=== PATIENT | female | born 1990 | race Caucasian/White ===

== ENCOUNTER 2019-09-08 14:11 | Outpatient (RCR) | payer OTHER, SELFPAY ==
[2019-09-08 14:58] VITALS: BP 112/72; PULSE 91
== END 2019-09-21 07:47 | disposition home or self-care (01) ==
LOC: ANHOBOP 14:11
PROVIDERS: PCP Obstetrics & Gynecology; Visit Provider Obstetrics & Gynecology
DX: O36.8130 Decreased fetal movements, third trimester, not applicable or unspecified (principal); Z3A.37 37 weeks gestation of pregnancy
CPT/HCPCS: 59025

== ENCOUNTER 2019-09-17 08:53 | Inpatient (IN) | payer OTHER, SELFPAY ==
[2019-09-17] VITALS (70 sets, daily range): BP systolic 88–143; BP diastolic 41–84; PULSE 68–133; RESP 16–18; TEMP 36.7–37.2; O2SAT 98–100; BMI 31.4
--- NOTE | 2019-09-17 10:01 | PM.IMHP ---
H&P: HPI History of Present Illness Chief complaint: labor Narrative: FLEX BLEVINS is a 29 year old female who presents at 30 a 8 half weeks gestation in active labor. has been uncomplicated she is a l Review of Systems Review of Systems: All systems reviewed & are unremarkable except as noted in HPI and below PMFSH Family History Family History Other No pertinent family history Social History Social History Gender identity (if verbalized by the patient): Female Spiritual care concerns: No Meds Home Medications and Allergies Home Medications Medication Instructions Recorded Confirmed Type PNV cmb#95-ferrous fumarate-FA 1 tablet PO DAILY 09/05/19 09/05/19 History [] Allergies Allergy/AdvReac Type Severity Reaction Status Date / Time No Known Allergies Allergy Verified 09/05/19 13:05 Exam Const: General: no acute distress Eyes: General: appearance normal, both eyes and all related structures Neck: Neck: supple and no JVD Thyroid: thyroid normal Resp: Effort & Inspection: normal respiratory effort Auscultation: clear to auscultation bilaterally Cardio: Rate: regular rate Rhythm: regular rhythm GI: Inspection: normal to inspection Percussion: Yes normal to percussion ( gravid uterus with regular contractions) Skin: General skin exam: no rashes or lesions noted Extrem: General: normal to inspection and no edema Psych: Mental Status: mental status grossly normal Affect: normal affect Assessment and Plan Additional Plan impression: Term in active labor Plan: Spontaneous vaginal delivery is expected. She has an epidural candidate
[2019-09-17 10:35] LABS: Basophils Percent Auto 0.3 % (0.2-1.2); Eosinophils Absolute Auto 0.2 K/mm3 (0-0.3); Eosinophils Percent Auto 1.8 % (0-4.4); Hemoglobin 12.9 g/dL (12.0-15.0); Immature Granulocyte Absolute 0.04 K/mm3 (0.00-0.031); Immature Granulocyte Percent A 0.4 % (0-0.5); Lymphocytes Absolute Auto 2.38 K/mm3 (0.9-3.2); Lymphocytes Percent Auto 25.8 % (18.3-44.2); Mean Corpuscular HGB Conc 34.9 g/dl (32-36); Mean Corpuscular Hemoglobin 31.5 pg (26-34); Mean Corpuscular Volume 90.5 fl (80-100); Mean Platelet Volume 9.2 fl (7.4-10.4); Monocytes Absolute Auto 0.8 K/mm3 (0.1-0.6); Monocytes Percent Auto 9.1 % (2.6-8.5); Neutrophils Absolute Auto 5.8 K/mm3 (1.3-6.7); Neutrophils Percent Auto 62.6 % (45.5-73.1); Platelet Count Result 336 k/mm3 (150-375); Red Blood Count 4.09 M/mm3 (4.2-5.4); White Blood Count 9.2 K/mm3 (4.5-10.0)
[2019-09-17] MEDS: LACTATED RINGERS 1,000 ML 125 ML IV CONT ×2 (10:54→11:57)
--- NOTE | 2019-09-17 10:54 | WPDOBADMIT ---
Obstetrics - Admit Note Admission Note: record reviewed. No pertinent additions to the history and/or any subsequent changes in the physical findings that are not consistent with the expected course of the were found. Additions to the history and/or subsequent changes in the physical findings follow. None. cx /-2 arom clear fhts reassuring epidural ordered
[2019-09-17] MEDS: LACTATED RINGERS 1,000 ML 999 ML (11:14)
--- NOTE | 2019-09-17 14:19 | PM.OBPRVD ---
OB - Delivery Note Procedure Delivery date: 09/17/19 Procedure: Intrapartal events: None Induction method: none Delivery monitor: external FHT Route of delivery: Episiotomy description: None Laceration description: None Specimen: No Estimated blood loss (mL): 57 Anesthesia type: Epidural Disposition: floor Baby Date of : 09/17/19 Time of : 14:10 Weeks of gestation at delivery: 38 gender: Female Weight (pounds): 8 Weight (ounces): 1 presentation: vertex position: Right Occiput Anterior Placenta delivery description: Spontaneous cord vessel description: 3 Vessels score one minute: 9 score five minutes: 9
--- NOTE | 2019-09-17 14:29 | WPDANESEPP ---
Anes - Eval Pre Procedure Date/Time: 09/17/19 11:07 Pre Op Diagnosis: labor Patient Data Age: 29 Gender: F Height: 1.57 m Weight: 78 kg Last Vital Signs Temp 36.7 C 09/17/19 12:30 Pulse 97 09/17/19 14:16 BP 97/41 L 09/17/19 14:16 Pulse Ox 100 09/17/19 13:48 Allergies Allergy/AdvReac Type Severity Reaction Status Date / Time No Known Allergies Allergy Verified 09/05/19 13:05 Home Medications Medication Instructions Recorded Confirmed Type PNV cmb#95-ferrous fumarate-FA 1 tablet PO DAILY 09/05/19 09/05/19 History [] Laboratory Tests 09/17/19 09/17/19 09/17/19 10:26 10:26 10:26 WBC 9.2 K/mm3 K/mm3 (4.5-10.0) RBC 4.09 M/mm3 L M/mm3 (4.2-5.4) Hgb 12.9 g/dL g/dL (12.0-15.0) Hct 37.0 % % (37.0-47.0) MCV 90.5 fl fl (80-100) MCH 31.5 pg pg (26-34) MCHC 34.9 g/dl g/dl (32-36) RDW 13.0 % % (11.5-14.5) Plt Count 336 k/mm3 k/mm3 (150-375) MPV 9.2 fl fl (7.4-10.4) Immature Gran % (Auto) 0.4 % % (0-0.5) Neut % (Auto) 62.6 % % (45.5-73.1) Lymph % (Auto) 25.8 % % (18.3-44.2) [place] % (Auto) 9.1 % H % (2.6-8.5) Eos % (Auto) 1.8 % % (0-4.4) Baso % (Auto) 0.3 % % (0.2-1.2) Lymph # (Auto) 2.38 K/mm3 K/mm3 (0.9-3.2) [place] # (Auto) 0.8 K/mm3 H K/mm3 (0.1-0.6) Eos # (Auto) 0.2 K/mm3 K/mm3 (0-0.3) Baso # (Auto) 0.0 K/mm3 K/mm3 (0.0-0.1) Abs Immat Gran (auto) 0.04 K/mm3 H K/mm3 (0.00-0.031) Absolute Neuts (auto) 5.8 K/mm3 K/mm3 (1.3-6.7) Absolute Nucleated RBC 0.0 K/mm3 K/mm3 (0.0-0.012) Nucleated RBC % 0.0 % % (0.0-0.2) RPR Pending Blood Type O Positive Antibody Screen Negative Patient hx anesthesia problems: none Family hx anesthesia problems: none PMFSH Family History Family History Other No pertinent family history Social History Social History Smoking status: Never smoker Second hand tobacco smoke exposure: No Gender identity (if verbalized by the patient): Female Spiritual care concerns: No Exam Day of Procedure 09/17/19 14:29 Patient weight: normal Heart: regular rate and rhythm Lungs: clear to auscultation Airway: Mallampati scale class II Neurological: alert and oriented
[2019-09-17] MEDS: WITCH HAZEL 40 PADS 1 PAD TOPICAL (17:19)
[2019-09-17] MEDS: BENZOCAINE 20% AER SPR (*SP) 56 GM CAN 1 SPRAY TOPICAL (17:19)
--- NOTE | 2019-09-17 18:06 | PC.NURSE ---
1658-Patient transferred to post room #280 via wheelchair. Support person present. Oriented to unit, room, information board, rooming in, admission packet and security measures. Patient verbalizes understanding.
[2019-09-17] MEDS: IBUPROFEN 600 MG TABLET PO (19:08)
[2019-09-18] MEDS: ACETAMINOPHEN 325 MG TABLET 650 MG PO ×2 (01:33→11:28)
[2019-09-18] MEDS: IBUPROFEN 600 MG TABLET PO ×2 (01:33→07:16)
[2019-09-18 06:03] LABS: Hematocrit 29.5 % (37.0-47.0); Hemoglobin 10.4 g/dL (12.0-15.0)
--- NOTE | 2019-09-18 06:56 | PM.OBPNVD ---
OB - PN: Subj Subjective Date/time seen: 09/18/19 06:56 Patient comments: no complaints and pain well controlled baby status: doing well and nursing well OB - PN: Obj Data Labs CBC & Chem 7: 09/18/19 04:48 Labs: Laboratory Results - last 24 hr 09/17/19 09/17/19 09/18/19 10:26 10:26 04:48 WBC 9.2 RBC 4.09 L Hgb 12.9 10.4 L Hct 37.0 29.5 L MCV 90.5 MCH 31.5 MCHC 34.9 RDW 13.0 Plt Count 336 MPV 9.2 Immature Gran % (Auto) 0.4 Neut % (Auto) 62.6 Lymph % (Auto) 25.8 [place] % (Auto) 9.1 H Eos % (Auto) 1.8 Baso % (Auto) 0.3 Lymph # (Auto) 2.38 [place] # (Auto) 0.8 H Eos # (Auto) 0.2 Baso # (Auto) 0.0 Abs Immat Gran (auto) 0.04 H Absolute Neuts (auto) 5.8 Absolute Nucleated RBC 0.0 Nucleated RBC % 0.0 Blood Type O Positive Antibody Screen Negative OB - PN A/P Plan day: 1 Plan: routine care Time Spent With Patient Time: Total time spent is greater than 50% in coordination of care (as documented) at patient's floor/unit and/or counseling patient: Time with patient: less than 15 minutes Review of Systems Review of Systems: All systems reviewed & are unremarkable except as noted in HPI and below Exam GI: Inspection: normal to inspection Percussion: Yes normal to percussion Other: fundus firm : General: Yes other (flow light)
[2019-09-18] MEDS: DOCUSATE SODIUM 100 MG CAPSULE PO (07:06)
[2019-09-18] MEDS: MULTIVIT/MIN/PREN/FOL AC/IRON TABLET 1 TAB PO (07:06)
--- NOTE | 2019-09-18 07:08 | PM.DS ---
DS: Diagnosis Admitting Diagnosis Admitting Diagnosis: term DS: Summary Time Spent with Patient Time attestation: Total time spent providing and/or coordinating discharge services: Exam Const: General: no acute distress Eyes: General: appearance normal, both eyes and all related structures Neck: Neck: supple and no JVD Thyroid: thyroid normal Resp: Effort & Inspection: normal respiratory effort Auscultation: clear to auscultation bilaterally Cardio: Rate: regular rate Rhythm: regular rhythm GI: Inspection: non-distended GI Palp: Yes Soft to palpation, No Tenderness to palpation present (GI) and No Guarding due to palpation present (GI) Auscultation: normal bowel sounds : General: Yes bladder normal to palpation External Female Exam: normal external appearance Speculum Exam - Vagina: normal vaginal discharge and No vaginal bleeding Speculum Exam - Cervix: nontender Bimanual exam- vagina & uterus: bladder normal to palpation and No Cervical tenderness present OB/external & speculum: No vaginal bleeding Skin: General skin exam: no rashes or lesions noted Extrem: General: normal to inspection and no edema Psych: Mental Status: mental status grossly normal Affect: normal affect DS: Data Data Completed and Pending Labs on day of discharge: Labs from last 24 hours 09/18/19 09/17/19 09/17/19 04:48 10:26 10:26 WBC RBC Hgb 10.4 L Hct 29.5 L MCV MCH MCHC RDW Plt Count MPV Immature Gran % (Auto) Neut % (Auto) Lymph % (Auto) [place] % (Auto) Eos % (Auto) Baso % (Auto) Lymph # (Auto) [place] # (Auto) Eos # (Auto) Baso # (Auto) Abs Immat Gran (auto) Absolute Neuts (auto) Absolute Nucleated RBC Nucleated RBC % RPR Pending Blood Type O Positive Antibody Screen Negative 09/17/19 10:26 WBC 9.2 RBC 4.09 L Hgb 12.9 Hct 37.0 MCV 90.5 MCH 31.5 MCHC 34.9 RDW 13.0 Plt Count 336 MPV 9.2 Immature Gran % (Auto) 0.4 Neut % (Auto) 62.6 Lymph % (Auto) 25.8 [place] % (Auto) 9.1 H Eos % (Auto) 1.8 Baso % (Auto) 0.3 Lymph # (Auto) 2.38 [place] # (Auto) 0.8 H Eos # (Auto) 0.2 Baso # (Auto) 0.0 Abs Immat Gran (auto) 0.04 H Absolute Neuts (auto) 5.8 Absolute Nucleated RBC 0.0 Nucleated RBC % 0.0 RPR Blood Type Antibody Screen Discharge Plan Discharge Attending physician on discharge: Seymour Mejia Discharging Clinician: Seymour Mejia Patient Disposition: Home, Self-Care Activity: may shower, no straining, may drive after 2 weeks and pelvic rest Diet: heart healthy Wound Care Instructions: follow printed instructions Patient Instructions: Antibiotic Form Stand Alone Forms: General Discharge Information Follow-up/Referrals: Seymour Mejia MD [Primary Care Provider] - Discharge Medications: New hydrocodone-acetaminophen [[place]] 5-325 mg tablet 1 tablet PO Q4H PRN (Reason: pain) Qty: 10 RF: 0 Continued PNV cmb#95-ferrous fumarate-FA [] 28 mg iron- 800 mcg Tablet 1 tablet PO DAILY RF: 0 Date of admission: 09/17/19 08:53 Primary Care Provider: Seymour Mejia Admitting Provider: Seymour Mejia Attending physician on admission: Seymour Mejia
--- NOTE | 2019-09-18 07:15 | PC.NURSE ---
Patient viewed the discharge video Mother & Baby Care, The First Two Weeks . Patient was given the opportunity and encouraged to ask questions. Patient verbalized understanding of information shared and has been given the mother/baby guide for home reference.
[2019-09-18 07:45] VITALS: BP 100/69; PULSE 64; RESP 16; TEMP 36.9; O2SAT 98
[2019-09-18 07:56] LABS: Rapid Plasma Reagin Non-Reactive (NonReactive)
[2019-09-18] MEDS: MEASLES,MUMPS,RUBELLA VACCINE 0.5 ML VIAL SUB-Q (11:29)
--- NOTE | 2019-09-18 14:15 | PC.NURSE ---
Mother called out for assist with feeding. Upon entering mother has to breast in cross cradle with shallow latch. Reviewed feeding cues, frequencies, duration of feedings, feeding elimination flow sheet, and signs of adequate intake. Demonstrated stimulation techniques to wake for feeding. Assisted with to breast. Reviewed positioning/alignment in cross cradle, holding breast in U hold and guided asymmetrical latch on. was able to latch correctly. Infant nursed eagerly, with steady draws and frequent swallowing noted. Reviewed signs of a correct latch, effective nursing and suck swallow ratio. was able to maintain latch without discomfort to mother. Nipple care reviewed. Mother reports she feels is latched more deeply and reports less discomfort. Mother plans on 24 hour discharge. Mother is feeding as required and waking infant to feed if needed. Infant is currently meeting outcomes for weight, output, jaundice and feeding frequencies. Mother states she feels confident to continue effective at home. Reviewed transition to breast milk, signs of adequate intake, and engorgement/relief. Instructed to call ICP if intake/output less than required. Reviewed regular medications mother is taking. Information provided per Lona. Reviewed community resources on the [facility] website and in the Mom/Baby guide. Information on outpatient services provided. Mother has no further questions at this time.
--- NOTE | 2019-09-18 15:40 | WPDANLDPN2 ---
Anes-Prog Note L&D Date/Time: 09/18/19 15:40 Comfortable throughout: labor and delivery Neuraxial method: epidural Epidural/Spinal procedure site: clean & non-tender Neuro status: Neuro function grossly intact. Cardiovascular status: normal Respiratory status: normal Airway patency: baseline Mental status: baseline Post-Op hydration status: normal Vital Signs: Last Vital Signs Temp 98.5 F 09/18/19 07:45 Pulse 64 09/18/19 07:45 Resp 16 09/18/19 07:45 BP 100/69 09/18/19 07:45 Pulse Ox 98 09/18/19 07:45 I/O: Intake & Output 09/17/19 09/18/19 09/18/19 23:59 07:59 15:59 Output Total 185 Balance -185 Post-procedural complaints: none Patient feedback: Patient satisfied with anesthetic care.
[2019-09-21 11:13] VITALS: BP 116/88; PULSE 69; RESP 16; TEMP 36.9
== END 2019-09-18 15:50 | disposition home or self-care (01) | DRG 807 ==
LOC: ANHLDR 10:54 → ANHOB2 17:24
PROVIDERS: Admitting Provider Obstetrics & Gynecology; PCP Obstetrics & Gynecology; Visit Provider Obstetrics & Gynecology
DX: O69.81X0 Labor and delivery complicated by cord around neck, without compression, not applicable or unspecified (principal); Z37.0 Single live birth; Z3A.38 38 weeks gestation of pregnancy; O99.02 Anemia complicating childbirth; D64.9 Anemia, unspecified
CPT/HCPCS: 36415; 85014; 85018; 85025; 86592; 86850; 86900; 86901; 90710; A9270; J2590; J2795; J7120